=== PATIENT | male | born 2000 ===

== ENCOUNTER 2024-08-05 17:40 | Emergency (ER) | payer OTHER, SELFPAY ==
[2024-08-05 17:48] VITALS: BP 124/74; PULSE 71; RESP 16; TEMP 36.4; O2SAT 100
[2024-08-05 17:58] LABS: Add Urine Microscopic? NO; Appearance Urine Clear (Clear); Bilirubin Urine Negative (Negative); Blood Urine Negative (Negative); Color Urine Yellow (Yellow); Glucose Urine UA Negative (Negative); Ketones Urine Negative (Negative); Leukocyte Esterase Ur Negative LEU/UL (Negative); Nitrate Urine Negative (Negative); Protein Urine Negative (Negative); Specific Grav Ur 1.004 (1.001-1.035); Urobilinogen Urine 0.2 mg/dL (<2.0)
--- NOTE | 2024-08-05 19:33 | ED.MALEGU ---
HPI - Male Genitourinary General Chief complaint: Urogenital-Male <Brandi Lara, TATTOO IDENTIFIER - Last Filed: 08/05/24 19:36> Stated complaint: uti <Brandi Lara TATTOO IDENTIFIER - Last Filed: 08/05/24 19:36> Time Seen by Provider: 08/05/24 19:20 <Brandi Lara TATTOO IDENTIFIER - Last Filed: 08/05/24 19:36> Focused HPI: Patient is a 24-year-old male who presents to the ER with concerns of painful urination. He denies any abdominal pain, blood in his urine, back pain, penile discharge. Patient endorses a sharp pain and has some concerns for STDs. When offered treatment patient declined ceftriaxone IM now and verbalizes understanding that he will only be partially covered for STDs if he chooses not to get this medication. Patient verbalizes understanding. He denies any other symptoms related to infection or illness. Patient denies any pertinent medical history related to this ER visit. GENERAL: Well-appearing, well-nourished, and in no acute distress. HEAD: Normocephalic, atraumatic. CHEST: Clear to auscultation. ?No respiratory distress. HEART: Regular rate and rhythm.? NEURO: ?Alert and oriented x3. Patient screened in triage and initial orders placed.? ?Additional care and disposition to be based upon?diagnostic testing and treatment. <Brandi Lara, TATTOO IDENTIFIER - Last Filed: 08/05/24 19:36> Focused HPI: Patient is a 24-year-old male who presents to the ER with concerns of painful urination. He denies any abdominal pain, blood in his urine, back pain, penile discharge. Patient endorses a sharp pain and has some concerns for STDs. When offered treatment patient declined ceftriaxone IM now and verbalizes understanding that he will only be partially covered for STDs if he chooses not to get this medication. Patient verbalizes understanding. He denies any other symptoms related to infection or illness. Patient denies any pertinent medical history related to this ER visit. GENERAL: Well-appearing, well-nourished, and in no acute distress. HEAD: Normocephalic, atraumatic. CHEST: Clear to auscultation. ?No respiratory distress. HEART: Regular rate and rhythm.? NEURO: ?Alert and oriented x3. Patient screened in triage and initial orders placed.? ?Additional care and disposition to be based upon?diagnostic testing and treatment. <Norma Madison PA-C - Last Filed: 08/05/24 23:25> Related Data Allergies/Adverse reactions: Allergies Allergy/AdvReac Type Severity Reaction Status Date / Time No Known Drug Allergies Allergy Unknown Verified 05/02/18 13:31 <Brandi Lara TATTOO IDENTIFIER - Last Filed: 08/05/24 19:36> Review of Systems Review of Systems: CONSTITUTIONAL: Denies fever, GASTROINTESTINAL: Denies abdominal pain, nausea, vomiting GENITOURINARY: Reports dysuria. Denies hematuria. SKIN: Denies rash <Norma Madison PA-C - Last Filed: 08/05/24 23:25> All systems reviewed & are unremarkable except as noted in HPI and below <Norma Madison PA-C - Last Filed: 08/05/24 23:25> FOR[facility]LY [facility], [facility] Past Medical History Medical History: Medical History (Updated 08/05/24 @ 23:23 by Norma Madison PA-C) No active medical problems <Brandi Lara, NIC - Last Filed: 08/05/24 19:36> Social History Social History: Social History (Updated 08/05/24 @ 23:22 by Norma Madison PA-C) Substance use: never <Brandi Lara, NIC - Last Filed: 08/05/24 19:36> Exam Narrative: GENERAL: Well-appearing, well-nourished, and in no acute distress. HEAD: Normocephalic, atraumatic. EYES: EOMI. CHEST: No respiratory distress. HEART: Regular rate EXTREMITIES: Normal range of motion. No edema. SKIN: Warm, dry, no rash. NEURO: No focal deficits. Alert and oriented x3. PSYCH: Normal mood and affect <Norma Madison PA-C - Last Filed: 08/05/24 23:25> Course Course Emergency Course: Patient updated on his workup and agrees with plan of care <Norma Madison PA-C - Last Filed: 08/05/24 23:25> Vital Signs Vital signs: Vital Signs Temperature 97.6 F 08/05/24 17:48 Pulse Rate 71 08/05/24 17:48 Respiratory Rate 16 08/05/24 17:48 Blood Pressure 124/74 08/05/24 17:48 Pulse Oximetry 100 08/05/24 17:48 Temperature 97.8 F 08/05/24 21:22 Pulse Rate 67 08/05/24 21:22 Respiratory Rate 18 08/05/24 21:22 Blood Pressure 124/77 08/05/24 21:22 Pulse Oximetry 99 08/05/24 21:22 <Brandi Lara, TATTOO IDENTIFIER - Last Filed: 08/05/24 19:36> Vital Signs Temperature 97.6 F 08/05/24 17:48 Pulse Rate 71 08/05/24 17:48 Respiratory Rate 16 08/05/24 17:48 Blood Pressure 124/74 08/05/24 17:48 Pulse Oximetry 100 08/05/24 17:48 Temperature 97.8 F 08/05/24 21:22 Pulse Rate 67 08/05/24 21:22 Respiratory Rate 18 08/05/24 21:22 Blood Pressure 124/77 08/05/24 21:22 Pulse Oximetry 99 08/05/24 21:22 <Norma Madison PA-C - Last Filed: 08/05/24 23:25> MDM - Male Genitourinary MDM Narrative Medical decision making narrative: Patient presents to the emergency department for intermittent dysuria today. Urine without signs of infection. His STD testing is negative. He was updated on his workup. Will be given follow-up with PCP if symptoms persist <Norma Madison PA-C - Last Filed: 08/05/24 23:25> Differential Diagnosis Differential diagnosis: Likely urinary tract infection and urethritis <IGNACIO Andres Last Filed: 08/05/24 23:25> Lab Data Attestation: I reviewed the patient's lab results. <Norma Madison PA-C - Last Filed: 08/05/24 23:25> Labs: Lab Results 08/05/24 Range/Units 17:52 Urine Color Yellow (Yellow) Urine Appearance Clear (Clear) Urine pH 6.0 (5.0-9.0) Ur Specific [place] 1.004 (1.001-1.035) Urine Protein Negative (Negative) mg/dL Urine Glucose (UA) Negative (Negative) mg/dL Urine Ketones Negative (Negative) mg/dL Ur Blood (Man) Negative (Negative) Urine Nitrate Negative (Negative) Urine Bilirubin Negative (Negative) Urine Urobilinogen 0.2 (<2.0) mg/dL Leukocyte Esterase Rfl Negative (Negative) NANI/UL C. trachomatis (PCR) Not detected (NOT DETECTE) N. gonorrhoeae (PCR) Not detected (NOT DETECTE) T. vaginalis (PCR) Not detected (NOT DETECTE) <Brandi Lara APRN - Last Filed: 08/05/24 19:36> Lab Results 08/05/24 Range/Units 17:52 Urine Color Yellow (Yellow) Urine Appearance Clear (Clear) Urine pH 6.0 (5.0-9.0) Ur Specific [place] 1.004 (1.001-1.035) Urine Protein Negative (Negative) mg/dL Urine Glucose (UA) Negative (Negative) mg/dL Urine Ketones Negative (Negative) mg/dL Ur Blood (Man) Negative (Negative) Urine Nitrate Negative (Negative) Urine Bilirubin Negative (Negative) Urine Urobilinogen 0.2 (<2.0) mg/dL Leukocyte Esterase Rfl Negative (Negative) NANI/UL C. trachomatis (PCR) Not detected (NOT DETECTE) N. gonorrhoeae (PCR) Not detected (NOT DETECTE) T. vaginalis (PCR) Not detected (NOT DETECTE) <Norma Madison PA-C - Last Filed: 08/05/24 23:25> Critical Care Time Critical Care Time Critical Care Time: No <Norma Madison PA-C - Last Filed: 08/05/24 23:25> Discharge Plan Discharge Clinical Impression: Dysuria <Brandi Lara APRN - Last Filed: 08/05/24 19:36> Patient Disposition: Home, Self-Care <Brandi Lara APRN - Last Filed: 08/05/24 19:36> Condition: Stable <Brandi Lara APRN - Last Filed: 08/05/24 19:36> Instructions: Dysuria (ED) <Brandi Lara APRN - Last Filed: 08/05/24 19:36> Additional Instructions: Return to the ER if you experience fever, abdominal pain with nausea and vomiting, you are unable to keep down liquids or solids, worsening pain or burning with urination, blood in the urine or any other symptoms that are concerning to you Your urine looked normal today. Your STD testing was negative Follow up with primary care doctor if your symptoms persist for further evaluation <Brandi Lara APRN - Last Filed: 08/05/24 19:36> Follow-up/Referrals: Adrian Yanez MD [Physician] - Mey Shelby DO [Physician] - <Brandi Lara APRN - Last Filed: 08/05/24 19:36>
[2024-08-05 19:56] LABS: Trichomonas Vag PCR NOT DETECTED (NOT DETECTE)
[2024-08-05] MEDS: DOXYCYCLINE HYCLATE 100 MG TABLET PO (20:20)
[2024-08-05] MEDS: metroNIDAZOLE 500 MG TABLET 2000 MG PO (20:20)
[2024-08-05 20:21] LABS: Chlamydia trachomatis NOT DETECTED (NOT DETECTE); Neisseria gonorrhoeae PCR NOT DETECTED (NOT DETECTE)
[2024-08-05 21:22] VITALS: BP 124/77; PULSE 67; RESP 18; TEMP 36.6; O2SAT 99
[2024-08-05 23:30] VITALS: BP 133/79; PULSE 76; RESP 18; O2SAT 100
== END 2024-08-05 23:31 | disposition home or self-care (01) ==
PROVIDERS: Emergency Medicine; Registered Nurse; Emergency Provider Physician Assistant
DX: R30.0 Dysuria (principal)
CPT/HCPCS: 81003; 87491; 87591; 87661; 99283; A9270